=== PATIENT | female | born 1990 | race Hispanic/Latino ===

== ENCOUNTER → 2018-07-06 | Emergency (ER) | payer BC, OTHER ==
[2018-07-06 19:06] VITALS: PULSE 76; RESP 18; TEMP 98; O2SAT 100
--- NOTE | 2018-07-06 19:48 | ED PDOC ---
HPI: Allergic Reaction Time Seen by Provider: 07/06/18 17:54 Chief Complaint (Nursing): Allergic Reaction Chief Complaint (Provider): Allergic reaction History Per: Patient History/Exam Limitations: no limitations Onset/Duration Of Symptoms: Mins Current Symptoms Are (Timing): Still Present Additional History Per: Patient Additional Complaint(s): 27yo female, with history of asthma, comes to ER for evaluation after she had an allergic reaction. Patient states approximately 1 hour prior to arrival, she noted some tingling in the back of her throat and also developed tongue swelling as well as trouble breathing. She took 2 doses of Benadryl, used Advair as well as albuterol inhaler, after which she came to the ER. patient states upon arri lita, her symptoms had resolved. She states the reactions occurred while eating carrots; she denies any history of allergies to foods or medications. Past Medical History Reviewed: Historical Data, Nursing Documentation, Vital Signs Vital Signs: Last Vital Signs Temp 98 F 07/06/18 19:05 Pulse 76 07/06/18 19:05 Resp 18 07/06/18 19:05 BP 128/76 07/06/18 19:05 Pulse Ox 100 07/06/18 19:05 - Medical History PMH: Asthma - Surgical History Surgical History: No Surg Hx - Family History Family History: States: No Known Family Hx - Home Medications Home Medications: Ambulatory Orders Medication Instructions Recorded Cephalexin [cephalexin] 500 mg PO BID #14 cap 11/20/15 Ibuprofen [Motrin] 600 mg PO Q6 #20 tab 11/20/15 Oxycodone HCl/Acetaminophen 1 tab PO Q4 #10 tab 11/20/15 [Percocet 325 mg-5 mg] Famotidine [Pepcid] 20 mg PO DAILY #4 tab 07/06/18 Prednisone [Deltasone] 40 mg PO DAILY #4 tablet 07/06/18 - Allergies Allergies/Adverse Reactions: Allergies Allergy/AdvReac Type Severity Reaction Status Date / Time No Known Allergies Allergy Unverified 11/20/15 10:44 Review of Systems ROS Statement: Except As Marked, All Systems Reviewed And Found Negative ENT: Negative for: Mouth Swelling, Throat Swelling Respiratory: Negative for: Shortness of Breath Skin: Negative for: Rash Neurological: Negative for: Dizziness Physical Exam - Reviewed Nursing Documentation Reviewed: Yes Vital Signs Reviewed: Yes - Physical Exam Appears: Positive for: Non-toxic, No Acute Distress Skin: Positive for: Normal Color, Warm, Dry. Negative for: Rash Eye Exam: Positive for: Normal appearance, EOMI, PERRL ENT: Positive for: Other (uvula midline). Negative for: Pharyngeal Erythema Neck: Positive for: Normal, Supple Cardiovascular/Chest: Positive for: Regular Rate, Rhythm. Negative for: Tachycardia Respiratory: Positive for: Normal Breath Sounds. Negative for: Wheezing, Respiratory Distress Neurological/Psych: Positive for: Awake, Alert, Oriented (x 3) - ECG O2 Sat by Pulse Oximetry: 100 (RA) Pulse Ox Interpretation: Normal - Progress ED Course And Treament: 27yo female with allergic reaction Plan: -- Pepcid 20mg PO -- Prednisone 40mg PO 1939 Patient observed in ED for 2 hours. On reassessment, she remains asymptomatic and there is no evidence of anaphylaxis on physical exam or history. Patient is stable for discharge home; return precautions given. Scribe Attestation: Documented by Sarah Cerna acting as a scribe for RANULFO Fraser. Provider Scribe Attestation: All medical record entries made by the Scribe were at my direction and personally dictated by me. I have reviewed the chart and agree that the record accurately reflects my personal performance of the history, physical exam, medical decision making, and the department course for this patient. I have also personally directed, reviewed, and agree with the discharge instructions and disposition. Disposition - Clinical Impression Clinical Impression: Allergic reaction, Acute allergic reaction - Patient ED Disposition Is Patient to be Admitted: No Counseled Patient/Family Regarding: Studies Performed, Diagnosis, Need For Followup - Disposition Referrals: Marry Dhillon MD [Staff Provider] - Disposition: Routine/Home Disposition Time: 19:51 Condition: STABLE Additional Instructions: Return to ER if you have recurrent symptoms of shortness of breath, throat or tongue swelling. Complete course of Pepcid and Prednisone as prescribed. Avoid carrots from now on. Prescriptions: Famotidine [Pepcid] 20 mg PO DAILY #4 tab Prednisone [Deltasone] 40 mg PO DAILY #4 tablet Instructions: Anaphylaxis (DC) Forms: [employer] (Indonesian) Print Language: JAMAICAN
[2018-07-06 23:17] VITALS: BP 118/78
== END | disposition home or self-care (01) ==
LOC: H.ER 16:51
DX: T78.40XA Allergy, unspecified, initial encounter (principal)